=== PATIENT | male | born 1990 ===

== ENCOUNTER 2018-05-23 11:05 | Emergency (ER) | payer BC ==
[2018-05-23] MEDS ORDERED: Sodium Chloride 0.9% 1,000 ML IV ONE (11:20)
[2018-05-23 11:47] LABS: BASO # 0.1 K/uL (0.0-0.2); BASO % 0.8 % (0.0-2.0); EOS % 0.5 % (0.0-4.0); HEMOGLOBIN 15.4 g/dL (12.0-18.0); LYMPH # 0.8 K/uL (1.0-4.3); LYMPH % 8.6 % (20.0-40.0); MEAN CELL VOLUME 80.6 fL (80.0-94.0); MEAN CORPUSCULAR HEMOGLOBIN 27.5 pg (27.0-31.0); MEAN CORPUSCULAR HGB CONC 34.1 g/dL (33.0-37.0); MEAN PLATELET VOLUME 9.1 fL (7.2-11.7); MONO # 0.5 K/uL (0.0-0.8); MONO % 5.1 % (0.0-10.0); NEUT # 8.3 K/uL (1.8-7.0); NRBC % 0.1 % (0.0-2.0); PLATELET COUNT 234 K/uL (130-400); RBC 5.62 Mil/uL (4.40-5.90); RED CELL DISTRIBUTION WIDTH 13.1 % (11.5-14.5); WHITE BLOOD COUNT 9.8 K/uL (4.8-10.8)
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
[2018-05-23 12:10] LABS: ALB/GLOB RATIO 1.3 (1.0-2.1); ALBUMIN 4.3 g/dL (3.5-5.0); ALT/SGPT 38 U/L (21-72); AST/SGOT 25 U/L (17-59); BLOOD UREA NITROGEN 12 mg/dL (9-20); CALCIUM 8.9 mg/dl (8.6-10.4); GFR NON-AFRICAN AMERICAN > 60; LIPASE 36 U/L (23-300)
[2018-05-23 12:19] LABS: ANISOCYTOSIS SLIGHT; BASOPHIL 1 % (0-2); EOSINOPHIL 1 % (0-4); LYMPHOCYTE 9 % (20-40); MONOCYTE 5 % (0-10); NEUTROPHIL 84 % (50-75); PLATELET ESTIMATE NORMAL (NORMAL); TOTAL CELLS COUNTED 100
[2018-05-23 12:20] LABS: HYPOCHROMIC SLIGHT; LARGE PLATELETS PRESENT; MICROCYTOSIS SLIGHT; POLYCHROMIC SLIGHT
[2018-05-23] MEDS ORDERED: Sodium Chloride 0.9% 1,000 ML ONE (12:21)
[2018-05-23 13:04] LABS: SQUAMOUS EPITHIAL < 1 /hpf (0-5); URINE BILIRUBIN NEGATIVE (NEGATIVE); URINE BLOOD NEGATIVE (NEGATIVE); URINE CLARITY Clear (Clear); URINE COLOR Yellow (YELLOW); URINE GLUCOSE (UA) NORMAL (Normal); URINE LEUKOCYTE ESTERASE NEG Leu/uL (Negative); URINE PROTEIN 2+ mg/dL (NEGATIVE); URINE UROBILINOGEN NORMAL mg/dL (0.2-1.0)
--- NOTE | 2018-05-23 13:29 | US ---
Date of service: 05/23/2018 HISTORY: c/o right upper quadrant pain COMPARISON: None. TECHNIQUE: Sonographic evaluation of the right upper quadrant of the abdomen. FINDINGS: LIVER: Measures 27.2 cm in length. Normal echogenicity of the liver parenchyma. No mass. No intrahepatic bile duct dilatation. GALLBLADDER: Unremarkable. No gallstones. No sonographic Fine sign reported. COMMON BILE DUCT: Measures 3.0 mm. No stones. No dilatation. PANCREAS: Pancreas inadequately evaluated due to extensive overlying bowel gas. RIGHT KIDNEY: Right kidney is not identified suggesting agenesis or prior right nephrectomy. Clinically correlate. No right pelvic kidney. Left kidney appears unremarkable as imaged. AORTA: No aneurysmal dilatation. IVC: Unremarkable. OTHER FINDINGS: None . IMPRESSION: Hepatomegaly. Hepatic steatosis noted. No mass or cyst throughout the patent parenchyma. No definite biliary tree dilatation. 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 Unremarkable left kidney.
[2018-05-23 14:15] VITALS: BP 156/95
[2018-05-23 14:19] VITALS: PULSE 82; RESP 18; TEMP 98.2
[2018-05-23 14:31] VITALS: O2SAT 99
== END 2018-05-23 14:49 | disposition home or self-care (01) ==
LOC: C.ER 11:05
DX: K52.9 Noninfective gastroenteritis and colitis, unspecified (principal); R03.0 Elevated blood-pressure reading, without diagnosis of hypertension
CPT/HCPCS: 76705; 80053; 81001; 83690; 85025; 96361; 96374; 99284; J7030